=== PATIENT | male | born 1980 | race Caucasian/White ===

== ENCOUNTER 2019-11-12 04:21 | Inpatient (IN) | payer BC, OTHER, SELFPAY ==
[2019-11-12] MEDS ORDERED: Adacel (T-DAP) 0.5 ML SYRINGE ONE (04:32)
[2019-11-12] MEDS ORDERED: Fentanyl 100 MCG/2 ML VIAL ONE (04:48)
[2019-11-12] MEDS ORDERED: PROPOFOL 20 ML ONE (04:52)
[2019-11-12 05:19] LABS: Hemoglobin 12.8 g/dL (14.0-18.0); Mean Corpuscular HGB CONC 33.1 g/dL (32.0-36.0); Mean Corpuscular Volume 87.7 fL (78.0-98.0); Mean Platelet Volume 9.4 fL (7.4-10.4); PTT 26.5 SEC (22.9-36.1); Platelet Count 211 thou/uL (130-400); Prothrombin Time 13.2 SEC (12.0-14.7); RBC Distribution Width 12.1 % (11.5-14.5); White Blood Cell (WBC) Count 22.5 thou/uL (4.8-10.8)
[2019-11-12] MEDS ORDERED: Morphine 4 MG/ML VIAL ONE (05:26)
[2019-11-12] MEDS ORDERED: Ondansetron PF 4 MG/2 ML Vial ONE (05:26)
[2019-11-12 05:35] LABS: ALT (SGPT) 70 U/L (8-55); AST (SGOT) 65 U/L (5-34); Albumin 3.7 g/dL (3.5-5.0); Alkaline Phosphatase 77 U/L (40-110); Anion Gap 11 mmol/L (10-20); BUN (Urea Nitrogen) 17 mg/dL (8.9-20.6); Band 6 % (5-11); Bilirubin, Total 0.9 mg/dL (0.2-1.2); Calc. Creatinine Clearance 0 mL/min (70-130); Calcium 8.5 mg/dL (7.8-10.44); Carbon Dioxide 24 mmol/L (22-29); Chloride 103 mmol/L (98-107); Estimated GFR-MDRD 73; Glucose 275 mg/dL (70-105); Hypochromia SLIGHT = 6-15 cells (100X) (0-5/hpf); Lymphocytes 11 % (21-51); MDiff Complete? YES; Monocytes 1 % (0-10); Neutrophil 82 % (42-75); Platelet Morphology Comment Appears Adequate; Potassium 4.3 mmol/L (3.5-5.1); Protein, Total 5.7 g/dL (6.0-8.3); Sodium 134 mmol/L (136-145)
[2019-11-12] MEDS ORDERED: Ketorolac Tromethamine 30 MG/ML VIAL ONE (05:45)
[2019-11-12] MEDS ORDERED: hydrALAZINE 20 MG/ML VIAL SLOW IVP PRN (07:23)
[2019-11-12] MEDS ORDERED: Dextrose 50% Abboject 50 ML SYRINGE SLOW IVP PRN (07:23)
[2019-11-12] MEDS ORDERED: Ondansetron PF 4 MG/2 ML Vial IVP PRN (07:23)
[2019-11-12] MEDS ORDERED: Dextrose 5% in Water 1,000 ML IV PRN (07:23)
[2019-11-12] MEDS ORDERED: Morphine 2 MG/ML SYRINGE SLOW IVP PRN (07:23)
[2019-11-12] MEDS ORDERED: Ondansetron ODT 4 MG TAB PO PRN (07:23)
[2019-11-12] MEDS ORDERED: Morphine 4 MG/ML VIAL SLOW IVP PRN (07:23)
[2019-11-12] MEDS ORDERED: Promethazine HCl 25 MG/ML VIAL IM PRN ×2 (07:23)
[2019-11-12 07:30] VITALS: BMI 38.0
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
[2019-11-12] MEDS: Sodium Chloride 0.9% 1,000 ML IV SCH ×2 (07:37→14:36)
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
[2019-11-12] MEDS: Famotidine 20 MG TAB PO SCH ×2 (08:10→08:17)
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
--- NOTE | 2019-11-12 08:36 | RAD ---
AP PELVIS SINGLE VIEW: Date: 11/12/2019 INDICATION: Post reduction. COMPARISON: Prior exam dated 11/12/2019. FINDINGS: Since the comparison examination, there has been interval reduction of the posterior superior right h ip dislocation. The right femoral head Rios fracture appears displaced within the inferior aspect o f the right hip joint. There is excreted IV contrast within the bladder. Bowel gas pattern is unobstr ucted. No additional acute abnormality is evident. IMPRESSION: Interval reduction of the previously seen posterior superior right hip fracture/dislocation. POS: BH
--- NOTE | 2019-11-12 08:58 | CT ---
CT OF THE PELVIS WITHOUT CONTRAST: INDICATION: Status post hip reduction from a posterior right hip dislocation. COMPARISON: CT of the chest, abdomen, and pelvis dated 11/12/2019 at 4:42 a.m. FINDINGS: Since the comparison examination, there has been interval reduction of the posterior right hip disloc ation. There is also reduction of the Rios I fracture involving the right femoral head. A small a mount of intraarticular gas is seen within the right hip joint likely related to vacuum gas phenomeno n. There is excreted contrast within the renal collecting systems. No free fluid is evident. Small con tusion of the right inguinal region is again noted. No additional acute osseous abnormality is evide nt. IMPRESSION: Interval reduction of the right hip dislocation with reduction also of the anterior inferior femoral head fracture. POS: BH
[2019-11-12] MEDS ORDERED: Bacitracin Zinc Ointment 30 gm TUBE TOP SCH (09:00)
[2019-11-12] MEDS ORDERED: Iopamidol 370 76% 100 ML VIAL ONE (09:37)
[2019-11-12 10:40] LABS: Bilirubin Negative (Negative); Blood, Urine 2+ (Negative); Clarity Clear (Clear); Glucose, Urine (Dipstick) 100 mg/dL (Negative); Leukocyte Negative Leu/uL (Negative); Mucous/LPF Rare LPF (<2+); Nitrite Negative (Negative); Protein, Urine (Dipstick) 10 mg/dL (Neg-Trace); RBC/HPF Greater than 50 HPF (0-3); Squamous Epithelial 0-3 HPF (0-3); Urobilinogen Normal mg/dL (Less than 2)
[2019-11-12 10:41] LABS: Amphetamine Not Detected (NotDetected); Barbiturates Screen Not Detected (NotDetected); Benzodiazepine Screen Not Detected (NotDetected); Cocaine Metabolite Screen Not Detected (NotDetected); Medtox Control Line Valid? VALID (VALID); Medtox Reader # READER 4; Methadone Not Detected (NotDetected); Methamphetamine Not Detected (NotDetected); Opiate Screen Detected (NotDetected); Oxycodone Screen Not Detected (NotDetected); Phencyclidine (PCP) Not Detected (NotDetected); THC/Cannabinoid Screen Not Detected (NotDetected); Tricyclic Screen Not Detected (NotDetected)
[2019-11-12 10:50] LABS: Bacteria/HPF 1+ HPF (None Seen)
[2019-11-12] MEDS ORDERED: Ketorolac Tromethamine 30 MG/ML VIAL IVP SCH (12:00)
[2019-11-12] MEDS ORDERED: Ibuprofen 600 MG TAB PO PRN (14:05)
[2019-11-12] MEDS ORDERED: Acetaminophen 500 MG TAB PO PRN (14:05)
[2019-11-12 15:25] VITALS: BP 117/72; TEMP 98.3
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
== END 2019-11-12 19:49 | disposition home or self-care (01) | DRG 536 ==
LOC: ERS 04:21 → SURG B 05:38
PROVIDERS: ADMIT Specialist; ATTEND Specialist
PROC: 0HQ1XZZ Repair Face Skin, External Approach (ICD-10-PCS; principal; 2019-11-12)
PROC: 0SS9XZZ Reposition Right Hip Joint, External Approach (ICD-10-PCS; 2019-11-12)
DX: S72.091A Other fracture of head and neck of right femur, initial encounter for closed fracture (principal); Z87.891 Personal history of nicotine dependence; G89.11 Acute pain due to trauma; E16.2 Hypoglycemia, unspecified; S00.81XA Abrasion of other part of head, initial encounter; S01.81XA Laceration without foreign body of other part of head, initial encounter; V47.5XXA Car driver injured in collision with fixed or stationary object in traffic accident, initial encounter; Y93.89 Activity, other specified; Y92.89 Other specified places as the place of occurrence of the external cause
CPT/HCPCS: 36415; 36416; 70450; 71045; 71260; 72125; 72170; 72192; 74177; 80053; 80306; 81003; 81015; 85025; 85610; 85730; 90715; G0390; J1885; J2270; J2405; J2704; J3010; Q9967